=== PATIENT | female | born 1950 | race Caucasian/White ===

== ENCOUNTER 2017-08-31 22:04 | Emergency (ER) | payer MEDICARE, BC, SELFPAY ==
[2017-08-31 22:02] VITALS: BP 140/83; PULSE 74; RESP 16; TEMP 36.8; O2SAT 99; BMI 25.0
--- NOTE | 2017-08-31 22:17 | XR_ITS ---
XR pelvis 1-2V HISTORY: Fall with injury and pain ITS.REASON: fall ORDERING PHYSICIAN: Lucio Hercules MD PATIENT AGE: 67 years Comparison: None FINDINGS: No fracture or dislocation is evident. No significant degenerative change. No lytic or blastic change. The SI joints have an unremarkable appearance. Unremarkable soft tissues. IMPRESSION: Negative pelvis.
--- NOTE | 2017-08-31 22:17 | CT_ITS ---
CT head/brain wo con HISTORY: Posttraumatic pain, headache, contusion and swelling in the frontal area and back of head ITS.REASON: fall ORDERING PHYSICIAN: Lucio Hercules MD PATIENT AGE: 67 years COMPARISON: TECHNIQUE: Axial images obtained without contrast. Brain and bone windows reviewed. All CT scans at the facility use one or more dose reduction, viz: automated exposure control; ma/kV adjustment per patient size (including targeted exams where dose is matched to indication; i.e. head); or iterative reconstruction technique. FINDINGS: No midline shift, mass effect, intracranial hemorrhage, hydrocephalus, or extra-axial fluid collection is evident. There is generalized atrophy with periventricular ischemic gliotic change. There is swelling of the scalp in the right frontal region consistent with contusion. No fracture The calvarium has an unremarkable appearance. No mastoid effusion. No sinus air-fluid levels.. IMPRESSION: 1. No acute intracranial finding. 2. Right frontal scalp contusion
--- NOTE | 2017-08-31 22:17 | CT_ITS ---
CT facial bones wo con CLINICAL INDICATION: Pain and swelling in the right jaw following injury ITS.REASON: fall ORDERING PHYSICIAN: Lucio Hercules MD PATIENT AGE: 67 years COMPARISON: None TECHNIQUE:Axial, sagittal, and coronal images are generated and reviewed without contrast. All CT scans at the facility use one or more dose reduction, viz: automated exposure control; ma/kV adjustment per patient size (including targeted exams where dose is matched to indication; i.e. head); or iterative reconstruction technique. FINDINGS: No obvious fracture or dislocation. There is soft tissue swelling along the right mandibular ramus. Mild mucosal thickening involves the left maxillary sinus. Mild TMJ arthropathy noted bilaterally. No sinus air-fluid level. Procedures are in place. IMPRESSION: 1. No acute fracture. 2. Soft tissue contusion in the right mandibular area
--- NOTE | 2017-08-31 22:17 | CT_ITS ---
CT cervical spine wo con HISTORY: Posttraumatic pain ITS.REASON: fall ORDERING PHYSICIAN: Lucio Hercules MD PATIENT AGE: 67 years COMPARISON: TECHNIQUE: Axial images obtained without contrast. Sagittal and coronal reformatted images are also generated and reviewed. All CT scans at the facility use one or more dose reduction, viz: automated exposure control; ma/kV adjustment per patient size (including targeted exams where dose is matched to indication; i.e. head); or iterative reconstruction technique. FINDINGS: There is reversal of the cervical lordosis. This may be due to patient positioning or muscle spasm. No fracture or dislocation. Multilevel degenerative changes are present with degenerative disc disease and facet and uncovertebral hypertrophy. This results in: C4-C5: Degenerative disc disease with left-sided lateral recess and foraminal narrowing small left paracentral disc osteophyte complex. C5-C6: Degenerative disc disease with left-sided lateral recess and foraminal narrowing with a small left paracentral disc osteophyte complex C6-C7: Degenerative disc disease with left-sided foraminal narrowing from disc osteophyte complex Lung apices are clear. There are centrilobular emphysematous changes 17 x 14 mm hyperdense right thyroid nodule and 22 x 12 mm hyperdense left thyroid nodule. IMPRESSION: 1. No acute fracture. 2. Cervical spondylosis as detailed above. 3. Bilateral thyroid nodules which may be better evaluated with ultrasound IMPRESSION
--- NOTE | 2017-08-31 22:29 | XR_ITS ---
XR chest AP HISTORY: Posttraumatic pain ITS.REASON: fall ORDERING PHYSICIAN: Lucio Hercules MD PATIENT AGE: 67 years COMPARISON: 08/03/2009 FINDINGS: The cardiomediastinal silhouette and pulmonary vascularity are within normal limits. There is increased density overlying the mid aspect of the left chest possibly related artifact as this extends to this axillary/soft tissue region as well. Upright PA and lateral chest may confirm. Underlying loculated effusion or pneumonia could have a similar appearance. The right lung is clear. There is an old right 10th rib fracture. An oval density is present overlying the left lung base possibly related to an overlying artifact. Mild thoracic scoliosis convex right. IMPRESSION: Vague density overlies the left chest and may be due to artifact. Upright PA and lateral chest may confirm. 2. Left lower lobe opacity which may also be due to overlying artifact.
[2017-08-31 22:34] LABS: Basophils % 0.5 % (0.1-2.0); Eosinophils # 0.1 K/mm3 (0.0-0.4); Hematocrit 37.7 % (37.0-47.0); Hemoglobin 12.9 g/dL (12.2-16.2); Lymphocytes # 3.6 K/mm3 (0.7-4.5); Mean Corpuscular HGB Conc 34.1 g/dL (31.8-35.4); Mean Corpuscular Hemoglobin 32.5 pg (27.0-31.2); Mean Corpuscular Volume 95.2 fl (81-99); Mean Platelet Volume 7.9 fl (7.4-10.4); Monocytes # 0.4 K/mm3 (0.1-1.0); Monocytes % 5.9 % (1.7-9.3); Neutrophils # 3.2 K/mm3 (1.8-7.8); Neutrophils % 43.7 % (37.0-80.0); Platelet Count 168 K/mm3 (142-424); Red Blood Count 3.97 M/mm3 (4.20-5.40); Red Cell Distribution Width 12.3 % (11.5-17.5); White Blood Count 7.4 K/mm3 (4.8-10.8)
[2017-08-31 22:45] LABS: Anion Gap 1.2 mEq/L (5-15); Blood Urea Nitrogen 11 mg/dL (7-18); Carbon Dioxide 29 mmol/L (21.0-32.0); Chloride 101 mmol/L (98-107); Creatinine Clearance Estimated 65 mL/min (0-300); Creatinine,Serum 0.78 mg/dL (0.55-1.02); Estimated Glomerular Filt Rate 74 ml/min (>60); GFR (African American) 89 ML/MIN (>60); Glucose 139 mg/dL (74-106); Potassium 3.2 mmoL/L (3.5-5.1); Sodium 128 mmol/L (136-145); Troponin I < 0.02 ng/ml (0.00-0.06)
--- NOTE | 2017-08-31 22:52 | [facility].EDFALL ---
ED Disposition Clinical Impression: Falls frequently, Laceration Head contusion Qualifiers: Encounter type: initial encounter Contusion of head detail: unspecified part of head Qualified Code(s): S00.93XA - Contusion of unspecified part of head, initial encounter Contusion of face Qualifiers: Encounter type: initial encounter Qualified Code(s): S00.83XA - Contusion of other part of head, initial encounter Disposition: Home, Self-Care Condition on Discharge: Good Instructions: DI for Laceration Repair -- Simple Additional Instructions: sutures out 10-12 days and call pcp about falls and follow up - Critical Care Critical Care Time: No Attestation: On 08/31/17, the high probability of a clinically significant, sudden or life threatening deterioration of the following system(s) required my full and direct attention, intervention and personal management. The time I documented below is in addition to time spent performing reported procedures but includes the following listed in this critical care notation. Medical Decision Making - Medical Records Medical records reviewed: Yes: I reviewed the patient's medical records. - Eladio Inquiry Pt receiving controlled substance: No Vital Signs: 08/31/17 22:02 Temperature 98.3 F Temperature Source Oral Pulse Rate [Right Radial] 74 Respiratory Rate 16 Blood Pressure [Right Arm] 140/83 Blood Pressure Mean [Right Arm] 102 Blood Pressure Source [Right Arm] Automatic Cuff Blood Pressure Position [Right Arm] Sitting 02 Sat by Pulse Oximetry 99 Oxygen Delivery Method Room Air - Lab Data Lab results reviewed: Yes: I reviewed the patient's lab results. Lab Results 08/31/17 22:25: WBC 7.4, RBC 3.97 L, Hgb 12.9, Hct 37.7, MCV 95.2, MCH 32.5 H, MCHC 34.1, RDW 12.3, Plt Count 168, MPV 7.9, Neut % (Auto) 43.7, Lymph % (Auto) 49.0, Charlton % (Auto) 5.9, Eos % (Auto) 1.0, Baso % (Auto) 0.5, Neut # (Auto) 3.2, Lymph # (Auto) 3.6, Charlton # (Auto) 0.4, Eos # (Auto) 0.1, Baso # (Auto) 0.0 08/31/17 22:25: Sodium 128 L, Potassium 3.2 L, Chloride 101, Carbon Dioxide 29, Anion Gap 1.2 L, BUN 11, Creatinine 0.78, Estimated Creat Clear 65, Estimated GFR 74, Est GFR ( Amer) 89, Glucose 139 H, Troponin I < 0.02 Result diagrams: 08/31/17 22:25 08/31/17 22:25 Orders (Tests/Meds): ED MEDICATIONS Discontinued Medications Generic Name Dose Route Start Last Admin Trade Name Freq PRN Reason Stop Dose Admin Tetanus/Diphtheria Toxoids 0.5 ml 08/31/17 22:46 Tenivac 0.5ml Syringe IM 08/31/17 22:47 .ONCE ONE ORDERS Category Date Time Status CT cervical spine wo con Stat Cat Scan 08/31/17 22:[address] facial bones wo con Stat Cat Scan 08/31/17 22:[address] head/brain wo con Stat Cat Scan 08/31/17 22:17 Taken XR chest AP Stat Exams 08/31/17 22:29 Taken XR pelvis 1-2V Stat Exams 08/31/17 22:17 Taken - Radiology Data #1 Image(s): Chest, Pelvis Image Reviewed: Yes I reviewed the patient's radiology image Preliminary Findings: No Fracture Seen - CT Data CT Scan: Head, C-Spine, Sinus Time Received: 23:[address] Reviewed: Yes: I have viewed the radiologist's interpretation Preliminary Findings: No Fracture Seen - ECG Data Tracing #1 I reviewed this ECG and interpreted as documented below: Normal Sinus Rhythm: Yes Ischemic changes: non-specific ST-T wave changes Fall HPI - General Chief Complaint: Fall Stated Complaint: fall Time Seen by Provider: 08/31/17 22:10 Mode of Arrival: EMS Source of Information: Patient, Relative, EMS, Medical Record Limitations: 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 by RN): right chin, laceration and bruise, right buttocks deep avulsion, currently all bleeding controlled - History of Present Illness HPI Narrative: fell today with hx of falls - with gluteal lac and no def sz - pt unable to give specific hx MD complaint: fa
[2017-09-01 00:15] VITALS: BP 140/83; PULSE 78; RESP 18; TEMP 37.3; O2SAT 99
== END 2017-09-01 00:15 | disposition home or self-care (01) ==
PROVIDERS: Emergency Provider Emergency Medicine; Family Provider Family Medicine
DX: S00.93XA Contusion of unspecified part of head, initial encounter (principal); S31.811A Laceration without foreign body of right buttock, initial encounter; W01.10XA Fall on same level from slipping, tripping and stumbling with subsequent striking against unspecified object, initial encounter; Y93.01 Activity, walking, marching and hiking; Z79.82 Long term (current) use of aspirin; Z87.891 Personal history of nicotine dependence; Z79.899 Other long term (current) drug therapy; Z23 Encounter for immunization
CPT/HCPCS: 12001; 70450; 70486; 71045; 72125; 72170; 80048; 84484; 85025; 90471; 90714; 93005; 99283

== ENCOUNTER → 2020-07-19 16:10 | Outpatient (CLI) | payer OTHER, SELFPAY ==
[2020-07-19 16:16] LABS: Microscopic, Urine URINE MICROSCOPIC (MICROSCOPIC)
[2020-07-19 18:06] LABS: Appearance,Urine CLOUDY (Clear); Bilirubin,Urine Negative (Negative); Blood, Urine Negative (Negative); Color,Urine YELLOW (Yellow); Glucose,Urine (UA) Negative (Negative); Ketones,Urine Negative (Negative); Leukocyte Esterase,Urine 3+ (Negative); Nitrate,Urine POSITIVE (Negative); PH,Urine 8.5 (5.0-8.5); Protein,Urine 1+ (Negative); Specific Gravity, Urine 1.015 (1.005-1.030); Urobilinogen,Urine 0.2 EU/dl (0.2)
[2020-07-19 18:24] LABS: Bacteria,Urine 4+ /lpf
[2020-07-19 18:25] LABS: Triple Phosphate Crystal,Urine Trace /lpf
== END ==
PROVIDERS: Visit Provider Nurse Practitioner Family
DX: N39.0 Urinary tract infection, site not specified (principal)
CPT/HCPCS: 81001; 87086; 87088; 87186